=== PATIENT | female | born 1940 | race Caucasian/White ===

== ENCOUNTER → 2017-04-30 | Outpatient (CLI) | payer MEDICARE, BC ==
[~2017-04-30] MED LIST: Amitriptyline100 MG PO; DABI150C PO; DIGOX125 MCG PO; DOCU100 PO; ERGO400 PO; LISI20 PO; METO100ER PO; METO50ER PO; Percocet 5-3251 EACH PO; Robaxin500 MG PO
[2017-04-30 12:02] LABS: Source, Urine Clean Catch
[2017-04-30 13:23] LABS: Bilirubin, Urine Neg (Neg); Blood, Urine 5+ (Neg); Glucose Qualitative, Urine Neg (Neg); Ketones, Urine Neg (Neg); Leukocyte Esterase, Urine 1+ (Neg); Nitrite, Urine Neg (Neg); Protein, Urine Neg (Neg); Urobilinogen, Urine NORM (Normal); pH, Urine 6.5 (5.0-8.0)
[2017-04-30 15:21] LABS: Appearance, Urine Clear (Clear); Color, Urine Yellow (P-Yellow)
[2017-04-30 15:22] LABS: Red Blood Cells, Urine 25-50 /hpf (0-2); Squamous Epithelial Cells Few /hpf (Few)
[2017-04-30 15:23] LABS: Bacteria Few /hpf
== END ==
LOC: LAB 10:45
PROVIDERS: Nurse Practitioner Family
DX: N39.0 Urinary tract infection, site not specified (principal)
CPT/HCPCS: 81001; 87077; 87086; 87186

== ENCOUNTER 2017-05-12 14:55 | Emergency (ER) | payer MEDICARE, BC ==
[~2017-05-12] VITALS: Ht 167.6 cm; Wt 81.7 kg
[~2017-05-12 14:55] MED LIST changes: -Percocet 5-3251 EACH PO; -Robaxin500 MG PO
[2017-05-12] MEDS ORDERED: Percocet 5-3251 EACH PO (16:07)
[2017-05-12] MEDS ORDERED: Robaxin500 MG PO (16:07)
== END 2017-05-12 16:19 | disposition home or self-care (01) ==
LOC: ER 14:55
DX: S20.211A Contusion of right front wall of thorax, initial encounter (principal); Z88.8 Allergy status to other drugs, medicaments and biological substances; Z79.899 Other long term (current) drug therapy; W19.XXXA Unspecified fall, initial encounter
CPT/HCPCS: 71101; 99283

== ENCOUNTER → 2017-05-27 | Outpatient (CLI) | payer MEDICARE, BC ==
[~2017-05-27] MED LIST changes: +Percocet 5-3251 EACH PO; +Robaxin500 MG PO
== END ==
LOC: LAB 14:50
DX: R31.9 Hematuria, unspecified (principal)
CPT/HCPCS: 87086

== ENCOUNTER → 2019-01-26 | Outpatient (CLI) | payer MEDICARE, BC | END | disposition home or self-care (01) | LOC: LAB SHORT 11:59 → PLD 11:59 | DX: L57.0 Actinic keratosis (principal) | CPT/HCPCS: 88305 ==

== ENCOUNTER → 2019-02-23 | Outpatient (CLI) | payer MEDICARE, BC | END | disposition home or self-care (01) | LOC: PLD 14:12 → LAB SHORT 14:12 | DX: S00.452A Superficial foreign body of left ear, initial encounter (principal) | CPT/HCPCS: 88305 ==

== ENCOUNTER 2019-07-09 08:04 | Emergency (ER) | payer MEDICARE, BC ==
[~2019-07-09] VITALS: Ht 172.7 cm; Wt 81.7 kg
[2019-07-09] MEDS ORDERED: VENL75ER (08:30)
== END 2019-07-09 10:33 | disposition home or self-care (01) ==
LOC: ER 08:04
DX: S01.112A Laceration without foreign body of left eyelid and periocular area, initial encounter (principal); S80.02XA Contusion of left knee, initial encounter; I48.91 Unspecified atrial fibrillation; Z79.899 Other long term (current) drug therapy; W01.0XXA Fall on same level from slipping, tripping and stumbling without subsequent striking against object, initial encounter
CPT/HCPCS: 12011; 70450; 99283-25

== ENCOUNTER 2021-09-21 12:31 | Emergency (ER) | payer MEDICARE, BC ==
[~2021-09-21] VITALS: Ht 167.6 cm; Wt 95.2 kg
[~2021-09-21 12:31] MED LIST changes: +C-1000 WITH R1000 MG PO; +CALCIUM-MAGNES1 EAC2 PO; +CYAN500 PO; -ERGO400 PO; +FIBER PO; +Folic Acid0.8 MG PO; -LISI20 PO; +NITR.4SL SL; +VENL75ER PO; +VITAMIN A PO; +VITAMIN D31000 UNI1 PO; +ZESTRIL40 M2 PO
[2021-09-21 13:35] LABS: BASOPHILS ABSOLUTE AUTO 0.03 K/mm3 (0.00-0.23); BASOPHILS PERCENT AUTO 1 % (0-2); EOSINOPHILS ABSOLUTE AUTO 0.11 K/mm3 (0.00-0.68); EOSINOPHILS PERCENT AUTO 2 % (0-6); Hematocrit 43.6 % (33.0-51.0); Hemoglobin 13.9 g/dL (11.5-16.0); IMMATURE GRAN ABSOLUTE AUTO 0.01 K/mm3 (0.00-0.10); IMMATURE GRAN PERCENT AUTO 0 % (0-1); LYMPHOCYTES ABSOLUTE AUTO 1.57 K/mm3 (0.84-5.20); LYMPHOCYTES PERCENT AUTO 26 % (21-46); MONOCYTES ABSOLUTE AUTO 0.71 K/mm3 (0.16-1.47); MONOCYTES PERCENT AUTO 12 % (4-13); Mean Corpuscular HGB Conc 31.9 g/dL (31.5-36.5); Mean Corpuscular Volume 97 fL (80-100); NEUTROPHILS ABSOLUTE AUTO 3.59 K/mm3 (1.96-9.15); NEUTROPHILS PERCENT AUTO 60 % (41-73); Platelet Count 191 K/mm3 (150-400); RDW Coefficient Variation 13.5 % (11.7-14.2); RDW Standard Deviation 48.4 fL (35.1-46.3); Red Blood Cell Count 4.48 M/mm3 (3.80-5.20); White Blood Cell Count 6.02 K/mm3 (4.00-11.30)
[2021-09-21] MEDS ORDERED: LOSA50 PO (13:45)
[2021-09-21] MEDS ORDERED: DABI150C PO ×2 (13:45→13:46)
[2021-09-21] MEDS ORDERED: ATOR20 PO (13:50)
[2021-09-21 13:59] LABS: Albumin, Blood 3.3 g/dL (3.4-5.0); Albumin/Globulin Ratio 0.8 (0.8-1.8); Bilirubin, Total 0.5 mg/dL (0.1-1.0); Bun/Creatinine Ratio 22.7 (12.0-20.0); Calcium, Blood 9.2 mg/dL (8.5-10.1); Creatinine, Blood 0.93 mg/dL (0.40-1.00); Globulin, Blood 4.1 g/dL (2.2-4.0); Potassium, Blood 4.2 mmol/L (3.5-5.5); Total Protein, Blood 7.4 g/dL (6.4-8.2)
[2021-09-21] MEDS ORDERED: POTCHL20ER PO (15:15)
[2021-09-21] MEDS ORDERED: FURO40 PO (15:15)
== END 2021-09-21 15:42 | disposition home or self-care (01) ==
LOC: ER 12:31
PROVIDERS: Student in an Organized Health Care Education/Training Program
DX: I11.0 Hypertensive heart disease with heart failure (principal); I50.9 Heart failure, unspecified; I48.91 Unspecified atrial fibrillation
CPT/HCPCS: 36415; 71045; 80053; 83880; 84484; 85025; 93005; 93010; 99284-25

== ENCOUNTER → 2022-02-25 | Outpatient (CLI) | payer MEDICARE, BC ==
[~2022-02-25] MED LIST changes: +ATOR20 PO; +FURO40 PO; +LOSA50 PO; +POTCHL20ER PO
[2022-02-25 14:04] LABS: Source, Urine Clean Catch
[2022-02-25 15:30] LABS: Appearance, Urine Cloudy (Clear); Bilirubin, Urine Neg (Neg); Blood, Urine 5+ (Neg); Color, Urine Yellow (P-Yellow); Glucose Qualitative, Urine Neg (Neg); Ketones, Urine 1+ (Neg); Leukocyte Esterase, Urine 2+ (Neg); Nitrite, Urine Neg (Neg); Protein, Urine 2+ (Neg); Urobilinogen, Urine NORM (Normal)
[2022-02-25 16:08] LABS: Bacteria Mod /hpf; Red Blood Cells, Urine 25-50 /hpf (0-2); Squamous Epithelial Cells Few /hpf (Few); Transitional Epithelial Cells Rare /hpf (0-Rare)
== END ==
LOC: LAB 14:02 → LAB SHORT 14:02
PROVIDERS: Internal Medicine
DX: N39.0 Urinary tract infection, site not specified (principal); E83.52 Hypercalcemia
CPT/HCPCS: 81001; 87077; 87086; 87186

== ENCOUNTER 2022-05-12 13:07 | Emergency (ER) | payer MEDICARE, BC ==
[~2022-05-12] VITALS: Ht 167.6 cm; Wt 77.1 kg
[~2022-05-12 13:07] MED LIST changes: +ALBU90OI INH
[2022-05-12 15:37] LABS: BASOPHILS ABSOLUTE AUTO 0.04 K/mm3 (0.00-0.23); BASOPHILS PERCENT AUTO 1 % (0-2); EOSINOPHILS ABSOLUTE AUTO 0.13 K/mm3 (0.00-0.68); EOSINOPHILS PERCENT AUTO 2 % (0-6); Hematocrit 39.9 % (33.0-51.0); Hemoglobin 13.1 g/dL (11.5-16.0); IMMATURE GRAN ABSOLUTE AUTO 0.01 K/mm3 (0.00-0.10); IMMATURE GRAN PERCENT AUTO 0 % (0-1); LYMPHOCYTES ABSOLUTE AUTO 1.45 K/mm3 (0.84-5.20); LYMPHOCYTES PERCENT AUTO 18 % (21-46); MONOCYTES ABSOLUTE AUTO 0.91 K/mm3 (0.16-1.47); MONOCYTES PERCENT AUTO 11 % (4-13); Mean Corpuscular HGB 32.1 pg (26.0-34.0); Mean Corpuscular HGB Conc 32.8 g/dL (31.5-36.5); Mean Corpuscular Volume 98 fL (80-100); Mean Platelet Volume 11.2 fL (9.1-12.4); NEUTROPHILS ABSOLUTE AUTO 5.44 K/mm3 (1.96-9.15); NEUTROPHILS PERCENT AUTO 68 % (41-73); Platelet Count 217 K/mm3 (150-400); RDW Coefficient Variation 13.6 % (11.7-14.2); RDW Standard Deviation 49.3 fL (35.1-46.3); Red Blood Cell Count 4.08 M/mm3 (3.80-5.20); White Blood Cell Count 7.98 K/mm3 (4.00-11.30)
[2022-05-12 16:02] LABS: Albumin, Blood 3.2 g/dL (3.4-5.0); Albumin/Globulin Ratio 0.8 (0.8-1.8); Bilirubin, Total 0.3 mg/dL (0.1-1.0); Bun/Creatinine Ratio 15.1 (12.0-20.0); Calcium, Blood 9.3 mg/dL (8.5-10.1); Creatinine, Blood 0.99 mg/dL (0.40-1.00); Globulin, Blood 3.8 g/dL (2.2-4.0); Potassium, Blood 3.6 mmol/L (3.5-5.5)
[2022-05-12] MEDS ORDERED: AZIT250 PO (16:26)
[2022-05-12] MEDS ORDERED: Ventolin5 MG/1 ML INH (16:26)
[2022-05-12] MEDS ORDERED: COMPRESSOR NEB1 EACH NEB (16:26)
[2022-05-12] MEDS ORDERED: PRED20 PO (16:26)
== END 2022-05-12 21:01 | disposition home or self-care (01) ==
LOC: ER 13:07
PROVIDERS: Student in an Organized Health Care Education/Training Program
DX: J18.9 Pneumonia, unspecified organism (principal); B97.4 Respiratory syncytial virus as the cause of diseases classified elsewhere; I10 Essential (primary) hypertension; Z88.5 Allergy status to narcotic agent; Z88.8 Allergy status to other drugs, medicaments and biological substances; Z79.899 Other long term (current) drug therapy
CPT/HCPCS: 36415; 71046; 80053; 83880; 85025; 93005; 93010; 94640; 94664; J2930

== ENCOUNTER → 2022-07-01 | Outpatient (CLI) | payer MEDICARE, BC ==
[~2022-07-01] MED LIST changes: +AZIT250 PO; +COMPRESSOR NEB1 EACH NEB; +PRED20 PO; +Ventolin5 MG/1 ML INH
== END ==
LOC: LAB 14:36 → LAB SHORT 14:36 → EDSTATUS 04-16 18:15 → LAB FUT 04-16 18:15
DX: N20.0 Calculus of kidney (principal)
CPT/HCPCS: 81050

== ENCOUNTER 2022-08-24 07:51 | Observation (INO) | payer MEDICARE, BC ==
[~2022-08-24] VITALS: Ht 167.6 cm; Wt 71.5 kg
[2022-08-24 08:39] LABS: Albumin, Blood 3.2 g/dL (3.4-5.0); Albumin/Globulin Ratio 0.9 (0.8-1.8); Bilirubin, Total 0.8 mg/dL (0.1-1.0); Bun/Creatinine Ratio 15.3 (12.0-20.0); Calcium, Blood 9.1 mg/dL (8.5-10.1); Creatinine, Blood 1.18 mg/dL (0.40-1.00); Globulin, Blood 3.5 g/dL (2.2-4.0); Potassium, Blood 4.4 mmol/L (3.5-5.5); Total Protein, Blood 6.7 g/dL (6.4-8.2)
[2022-08-24 08:57] LABS: BASOPHILS ABSOLUTE AUTO 0.02 K/mm3 (0.00-0.23); BASOPHILS PERCENT AUTO 0 % (0-2); EOSINOPHILS PERCENT AUTO 2 % (0-6); Hematocrit 38.5 % (33.0-51.0); Hemoglobin 12.2 g/dL (11.5-16.0); IMMATURE GRAN ABSOLUTE AUTO 0.02 K/mm3 (0.00-0.10); IMMATURE GRAN PERCENT AUTO 0 % (0-1); LYMPHOCYTES ABSOLUTE AUTO 1.04 K/mm3 (0.84-5.20); LYMPHOCYTES PERCENT AUTO 16 % (21-46); MONOCYTES ABSOLUTE AUTO 0.76 K/mm3 (0.16-1.47); MONOCYTES PERCENT AUTO 12 % (4-13); Mean Corpuscular HGB 30.7 pg (26.0-34.0); Mean Corpuscular HGB Conc 31.7 g/dL (31.5-36.5); Mean Corpuscular Volume 97 fL (80-100); Mean Platelet Volume 11.3 fL (9.1-12.4); NEUTROPHILS ABSOLUTE AUTO 4.54 K/mm3 (1.96-9.15); NEUTROPHILS PERCENT AUTO 70 % (41-73); Platelet Count 170 K/mm3 (150-400); RDW Coefficient Variation 13.2 % (11.7-14.2); RDW Standard Deviation 47.6 fL (35.1-46.3); Red Blood Cell Count 3.97 M/mm3 (3.80-5.20); White Blood Cell Count 6.48 K/mm3 (4.00-11.30)
[2022-08-24] MEDS ORDERED: DONEPEZIL HCL10 M1 PO (10:05)
[2022-08-24] MEDS ORDERED: CALCITONIN-SAL3.7 M5 NS (10:05)
[2022-08-24] MEDS ORDERED: VENL150ER PO (10:05)
[2022-08-24] MEDS ORDERED: POTASSIUM CITR10 ME2 PO (10:05)
[2022-08-24] MEDS ORDERED: LOSA50 PO (10:05)
[2022-08-24] MEDS ORDERED: OXYCODONE-ACET1 EAC3 PO (10:06)
[2022-08-24] MEDS ORDERED: ATORVASTATIN CA20 MG PO (10:06)
[2022-08-24 13:45] VITALS: BP 138/71
[2022-08-24] MEDS ORDERED: ELIQUIS5 M2 PO (13:58)
[2022-08-24 14:37] LABS: CHOL/HDL RATIO 2.1; Cholesterol 123 mg/dL (50-200); HDL Cholesterol 59 mg/dL (>39); LDL/HDL RATIO 0.8; Low Density Lipoprotein Chol 44 mg/dL (0-110); Triglycerides 98 mg/dL (30-160); Very Low Density Lipoprot Chol 19 mg/dL (6-32)
[2022-08-24 15:11] VITALS: BP 123/61
--- NOTE | 2022-08-24 16:36 | NUR ---
LATE ENTRY-1400 PT ADMITTED FROM ED WITH FAMILY AT BEDSIDE. PT REPORTED FALLING THE DAY PREVIOUS. SHE DOES NOT REMEMBER THE FALL SHE SAYS HER REPORTS RIGHT KNEE STARTED HURTING AFTER THE INCIDENT KNEE PAIN SHARP 8/10 . NO NEUROLOGIC DEFECITS OR INDICATIONS THAT SHE HAD DIFFICULTY SWALLOWING NOTED AT TIME OF MY ASSESSMENT. UPDATED MD. OK TO CHANGE PT DIET FROM NPO TO REG. PT FAMILY REPORTED HX OF DEMENTIA. INDEPENDENT WITH A CANE AT BASELINE. PALLIATIVE CARE CONSULT ORDERED.
[2022-08-24 19:42] VITALS: BP 125/60
[2022-08-25 04:54] VITALS: BP 136/69
[2022-08-25 06:15] LABS: BASOPHILS ABSOLUTE AUTO 0.03 K/mm3 (0.00-0.23); BASOPHILS PERCENT AUTO 1 % (0-2); EOSINOPHILS ABSOLUTE AUTO 0.12 K/mm3 (0.00-0.68); EOSINOPHILS PERCENT AUTO 2 % (0-6); Hematocrit 40.3 % (33.0-51.0); Hemoglobin 12.7 g/dL (11.5-16.0); IMMATURE GRAN ABSOLUTE AUTO 0.03 K/mm3 (0.00-0.10); IMMATURE GRAN PERCENT AUTO 1 % (0-1); LYMPHOCYTES ABSOLUTE AUTO 1.41 K/mm3 (0.84-5.20); LYMPHOCYTES PERCENT AUTO 24 % (21-46); MONOCYTES ABSOLUTE AUTO 0.58 K/mm3 (0.16-1.47); MONOCYTES PERCENT AUTO 10 % (4-13); Mean Corpuscular HGB 30.9 pg (26.0-34.0); Mean Corpuscular HGB Conc 31.5 g/dL (31.5-36.5); Mean Corpuscular Volume 98 fL (80-100); Mean Platelet Volume 11.3 fL (9.1-12.4); NEUTROPHILS ABSOLUTE AUTO 3.69 K/mm3 (1.96-9.15); NEUTROPHILS PERCENT AUTO 63 % (41-73); Platelet Count 167 K/mm3 (150-400); RDW Coefficient Variation 13.4 % (11.7-14.2); RDW Standard Deviation 48.2 fL (35.1-46.3); Red Blood Cell Count 4.11 M/mm3 (3.80-5.20); White Blood Cell Count 5.86 K/mm3 (4.00-11.30)
[2022-08-25 06:31] LABS: Albumin, Blood 2.7 g/dL (3.4-5.0); Albumin/Globulin Ratio 0.8 (0.8-1.8); Bilirubin, Total 0.5 mg/dL (0.1-1.0); Bun/Creatinine Ratio 16.2 (12.0-20.0); Calcium, Blood 8.6 mg/dL (8.5-10.1); Creatinine, Blood 1.05 mg/dL (0.40-1.00); Globulin, Blood 3.4 g/dL (2.2-4.0); Magnesium, Blood 1.8 mg/dL (1.6-2.4); Potassium, Blood 4.3 mmol/L (3.5-5.5); Total Protein, Blood 6.1 g/dL (6.4-8.2)
[2022-08-25 07:28] VITALS: BP 139/58
--- NOTE | 2022-08-25 07:37 | NUR ---
PT HAS WEEK GAIT WITH L KNEE PAIN, PAIN DUE TO RECENT FALL OR PREVIOUS KNEE SURGERY, STATES SHE USES CANE AT HOME. ALERT AND ORIENTED, WNL NEURO ASSESSMENTS. RED URINE, RECENT KIDNEY STONES. X1 ASSIST TO TOILET.
--- NOTE | 2022-08-25 08:30 | NUR ---
THERAPY: PT IN ROOM TO WORK WITH PATIENT. PT HAS BEEN COMPLAINING OF LEFT KNEE PAIN THAT SHE THINKS WAS R/T HER FALL AT HOME. NO SWELLING OR REDNESS NOTED IN KNEE. WILL UPDATE DOCTOR DURING ROUNDS.
--- NOTE | 2022-08-25 14:45 | NUR ---
DISCHARGE: PT DC TO HOME AT THIS TIME. ECHO COMPLETED. VERBALIZED UNDERSTANDING OF INSTRUCTIONS, FOLLOW UP, PROBLEMS TO REPORT AND MEDICATIONS. IV DC'D WNL. PT LEFT VIA WHEELCHAIR WITH BELONGINGS.
== END 2022-08-25 15:07 | disposition home or self-care (01) ==
LOC: ER 07:51 → MEDS 07:52 → ER 10:17 → MEDS 13:28
PROVIDERS: Student in an Organized Health Care Education/Training Program; ADMIT Internal Medicine
DX: G45.9 Transient cerebral ischemic attack, unspecified (principal); R29.709 NIHSS score 9; R47.1 Dysarthria and anarthria; R47.01 Aphasia; I48.21 Permanent atrial fibrillation; E78.5 Hyperlipidemia, unspecified; F32.A Depression, unspecified; I12.9 Hypertensive chronic kidney disease with stage 1 through stage 4 chronic kidney disease, or unspecified chronic kidney disease; N18.30 Chronic kidney disease, stage 3 unspecified; Z88.5 Allergy status to narcotic agent; Z79.899 Other long term (current) drug therapy; Z79.01 Long term (current) use of anticoagulants
CPT/HCPCS: 36415; 70450; 70496; 70498; 70551; 71045; 73562-LT; 80053; 80061; 82947; 83735; 83880; 84443; 84484; 85025; 93005; 93010; 93306; 94762; 96374-59; 96375-59; 97116; 97161; 99285-25; A9270; J1790; J2405; J7030; Q9967

== ENCOUNTER 2023-05-09 20:04 | Emergency (ER) | payer MEDICARE, BC ==
[~2023-05-09] VITALS: Ht 167.6 cm; Wt 70.3 kg
[~2023-05-09 20:04] MED LIST changes: +ATORVASTATIN CA20 MG PO; +CALCITONIN-SAL3.7 M5 NS; +DONEPEZIL HCL10 M1 PO; +ELIQUIS5 M2 PO; +OXYCODONE-ACET1 EAC3 PO; +POTASSIUM CITR10 ME2 PO; +VENL150ER PO
[2023-05-09 20:09] VITALS: BP 104/66
[2023-05-09 20:54] LABS: Albumin, Blood 2.9 g/dL (3.4-5.0); Albumin/Globulin Ratio 0.8 (0.8-1.8); Bilirubin, Total 0.2 mg/dL (0.1-1.0); Bun/Creatinine Ratio 19.4 (12.0-20.0); Calcium, Blood 8.6 mg/dL (8.5-10.1); Creatinine, Blood 1.44 mg/dL (0.40-1.00); Globulin, Blood 3.7 g/dL (2.2-4.0); Potassium, Blood 4.4 mmol/L (3.5-5.5); Total Protein, Blood 6.6 g/dL (6.4-8.2)
[2023-05-09 21:32] LABS: BASOPHILS ABSOLUTE AUTO 0.02 K/mm3 (0.00-0.23); BASOPHILS PERCENT AUTO 1 % (0-2); EOSINOPHILS ABSOLUTE AUTO 0.06 K/mm3 (0.00-0.68); EOSINOPHILS PERCENT AUTO 2 % (0-6); Hematocrit 36.4 % (33.0-51.0); Hemoglobin 11.2 g/dL (11.5-16.0); IMMATURE GRAN ABSOLUTE AUTO 0.01 K/mm3 (0.00-0.10); IMMATURE GRAN PERCENT AUTO 0 % (0-1); LYMPHOCYTES ABSOLUTE AUTO 1.34 K/mm3 (0.84-5.20); LYMPHOCYTES PERCENT AUTO 36 % (21-46); MONOCYTES PERCENT AUTO 13 % (4-13); Mean Corpuscular HGB 28.2 pg (26.0-34.0); Mean Corpuscular HGB Conc 30.8 g/dL (31.5-36.5); Mean Corpuscular Volume 92 fL (80-100); Mean Platelet Volume 11.1 fL (9.1-12.4); NEUTROPHILS ABSOLUTE AUTO 1.83 K/mm3 (1.96-9.15); NEUTROPHILS PERCENT AUTO 49 % (41-73); Platelet Count 177 K/mm3 (150-400); RDW Coefficient Variation 13.4 % (11.7-14.2); RDW Standard Deviation 45.3 fL (35.1-46.3); Red Blood Cell Count 3.97 M/mm3 (3.80-5.20); White Blood Cell Count 3.76 K/mm3 (4.00-11.30)
== END 2023-05-09 21:54 | disposition left against medical advice (07) ==
LOC: ER 20:04
PROVIDERS: Anesthesiology
DX: Z53.21 Procedure and treatment not carried out due to patient leaving prior to being seen by health care provider (principal)
CPT/HCPCS: 80053; 85025; 93005; 93010

== ENCOUNTER → 2024-11-27 | Outpatient (CLI) | payer MEDICARE, BC ==
[2024-11-30 14:17] LABS: Stool Occult Blood Guaiac 1 Neg (Neg)
[2024-11-30 14:18] LABS: Stool Occult Blood Guaiac 2 Neg (Neg); Stool Occult Blood Guaiac 3 Neg (Neg)
== END ==
LOC: LAB 17:05 → LAB SHORT 17:05
PROVIDERS: Internal Medicine
DX: D64.9 Anemia, unspecified (principal)
CPT/HCPCS: 82272